=== PATIENT | female | born 1960 | race Caucasian/White ===

== ENCOUNTER 2020-07-19 11:38 | Emergency (ER) | payer MEDICAID ==
[~2020-07-19] VITALS: Ht 170.2 cm; Wt 74.8 kg
[2020-07-19 11:53] VITALS: BP 141/84
== END 2020-07-19 13:00 | disposition home or self-care (01) ==
LOC: ER 11:45
DX: R60.0 Localized edema (principal); I10 Essential (primary) hypertension; Z88.6 Allergy status to analgesic agent
CPT/HCPCS: 93971-TC

== ENCOUNTER 2021-01-30 07:09 | Emergency (ER) | payer MEDICAID ==
[~2021-01-30] VITALS: Ht 160 cm; Wt 90.7 kg
--- NOTE | 2021-01-30 07:30 | NUR ---
THE PATIENT IS BIBSELF C/O L FOOT PAIN RADIATING TO L LOWER EXT X1 WEEK. RATES PAIN 7/10. WILL CONTINUE TO MONITOR THE PATIENT.
[2021-01-30] MEDS ORDERED: IBUPROFEN 600 MG TABLET ONE (07:48)
[2021-01-30] MEDS ORDERED: IBUP-1955 PO (07:52)
[2021-01-30] MEDS ORDERED: IBUPROFEN 600 MG TABLET PO ONE (08:00)
--- NOTE | 2021-01-30 08:01 | NUR ---
Patient discharged to home in stable condition. Written and verbal after care instructions given. Patient verbalizes understanding of instruction.
[2021-01-30 08:02] VITALS: BP 130/77
== END 2021-01-30 08:02 | disposition home or self-care (01) ==
LOC: ER 07:09
DX: M77.32 Calcaneal spur, left foot (principal); I10 Essential (primary) hypertension; Z88.6 Allergy status to analgesic agent
CPT/HCPCS: 73630-TC